=== PATIENT | female | born 1955 | race Caucasian/White ===

== ENCOUNTER → 2016-07-24 | Outpatient (CLI) | payer BC, OTHER ==
[~2016-07-24] MED LIST: ATIVAN 0.50.5 MG/TAB IV; BENEFIBER; BENICAR; CALCIUM + D 6001 TA1 PO; DIOVAN40 MG PO; DOXYCYCLINE; FLAGYL 250250 MG/TAB PO; FLAGYL500 MG PO; HALDOL .5M0.5 MG/TAB PO; LEXAPRO 10MG10 MG PO; LEXAPRO 5MG5 MG PO; LORTAB 5/500 501 TAB PO; MAGNESIUM100 MG PO; MORPHINE IV; MULTIPLE VITAMI1 CAP PO; NO HOME MEDICATIONS; NORCO 325 MG-51 TAB PO; PREMARIN .3MG0.3 MG PO; ROXANOL 20MG20 MG/ML SL; SINGULAIR 110 MG/TAB PO; TOPROL XL 25MG25 MG PO; TRANSDERM-0.5 MG/21 TD; ZOFRAN 4MG T4 MG/TAB PO
== END ==
LOC: ZCOL.LAB 13:20
DX: M79.604 Pain in right leg (principal); R51 Headache; I10 Essential (primary) hypertension